=== PATIENT | male | born 1970 | race Caucasian/White ===

== ENCOUNTER → 2018-05-23 | Outpatient (CLI) | payer MEDICARE, MEDICAID ==
[~2018-05-23] MED LIST: ABILIFY 10MG TA10 MG PO; ADDERALL10 MG PO; AEROCHAMBER1 DEV; AMBIEN 10MG10 MG PO; ANTIVERT 25MG25 MG PO; ATIVAN 1MG T1 MG/TAB PO; CARDIZEM CD 18180 MG PO; CELEBREX 200MG200 MG PO; CYANOCOBALAMIN IM; CYMBALTA 30MG30 MG PO; CYMBALTA 60MG60 MG PO; DEPAKOTE ER 50500 MG PO; DEPAKOTE500 MG PO; DESYREL DIVIDO150 M1 PO; DILAUDID 2MG TAB2 MG PO; DULERA1 AR1 IH; ELAVIL100 MG PO; EPIPEN1 MG/ML IM; FENTANYL 50MCG TD; FLOMAX 0.40.4 MG/CAP PO; FLONASE NASAL S16 GM NS; IBU800 M1 PO; KLONOPIN 0.5MG0.5 MG PO; LAMICTAL150 MG PO; LAMICTAL200 MG PO; MASON NATURAL2000 IU PO; MIRALAX PA17 GM/Dose PO; MOTRIN 600600 MG/TAB PO; MYSOLINE 5050 MG/TAB PO; NEURONTIN300 MG/CAP PO; PERCOCET 325 MG1 TA2 PO; PROAIR HFA0.09 MG/AC IH; ROXICODONE30 MG PO; SINGULAIR 110 MG/TAB PO; SYNTHROID 0.0.025 MG PO; UNABLE; VENTOLIN0.09 MG IH; VISTARIL 2525 MG/CAP PO; VISTARIL50 MG PO; WELLBUTRIN XL300 M1 PO; ZANAFLEX 4MG TAB4 MG PO; ZOFRAN ODT4 MG PO; ZOFRAN8 MG PO; ZYPREXA 5MG5 MG PO; ZYPREXA ZYD10 MG/TAB PO; ZYRTEC 10MG10 MG PO
== END ==
LOC: ZCOL.LAB 15:01
DX: Z22.322 Carrier or suspected carrier of Methicillin resistant Staphylococcus aureus (principal)

== ENCOUNTER 2019-05-07 16:19 | Emergency (ER) | payer MEDICARE, MEDICAID | END 2019-05-07 16:43 | disposition left against medical advice (07) | LOC: COL.ER 16:19 | DX: R05 Cough (principal); R06.00 Dyspnea, unspecified ==